=== PATIENT | female | born 2005 | race Two or more races ===

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

== ENCOUNTER 2025-02-10 11:30 | Emergency (ER) | payer SELFPAY ==
[2025-02-10 11:55] VITALS: BP 119/68; PULSE 97; RESP 16; TEMP 36.1; O2SAT 100; BMI 21.9
--- NOTE | 2025-02-10 11:59 | ED_ITS ---
HPI - General Adult General Chief complaint: Urogenital-Female Stated complaint: laser burn abd Time Seen by Provider: 02/10/25 12:36 Source: patient Mode of arrival: ambulatory Limitations: no limitations History of Present Illness ED Provider: PRISCILLA BUTLER PA-C HPI narrative: 19 year old female with no significant pmhx presents to ED with concern of burn to genital region following a laser hair removal session 8 days ago. Patient reports that pain has been worsening. Patient has been attempting cool baths, moisturizer and cool compresses without relief. Patient reports that pa in is now unbearable and that skin appears to be burned . She contacted the provider who performed her laser treatments and was informed that this may be atypical side effect. There were red bumps immediately after the session that pt now reports have become more red, painul and now look very infected. Severity rated 9/10. No fevers or drainage from leisions. Related Data Home Medications ?Medication ?Instructions ?Recorded ?Confirmed albuterol sulfate 90 mcg/actuation 2 puff inhalation Q 4-6H PRN 05/04/22 09/16/23 aerosol inhaler Previous Rx's ?Medication ?Instructions ?Recorded doxycycline monohydrate 100 mg 100 mg PO BID 7 days #1 4 caps 02/10/25 capsule Allergies Allergy/AdvReac Type Severity Reaction Status Date / Time egg (EGG) Allergy Mild HIVES Verified 02/10/25 12:02 Review of Systems Review of Systems: Yes all other systems are reviewed and are negative PMFSH Past Medical History Attestation statement: The following information was validated with the patient. Source: old records reviewed and nursing notes reviewed Social History Social History Alcohol intake: never Patient Tobacco Use Status: Never used Tobacco Advance Directives: No Advance Directives Information Provided: No Sexual orientation: Straight/Heterosexual Gender identity: Female Physical Exam ED Vital Signs: Vital Signs - 24 hr 02/10/25 11:55 02/10/25 14:16 Temperature 96.9 F 96.9 F Pulse Rate 97 97 Respiratory Rate 16 16 Blood Pressure 119/68 119/68 Pulse Oximetry 100 100 Oxygen Delivery Method Room Air Room Air BMI result Body Mass Index 21.9 vital signs stable, afebrile General: Well appearing, in no acute distress. Skin: Warm, dry, intact. No rashes or lesions. Head: Normocephalic, atraumatic. EENT: Hearing is intact b/l. Conjunctiva clear. PERRLA. EOM intact. Moist mucous membranes.? Cardiac: Chest wall symmetric. RRR Lungs: Normal respiratory effort without accessory muscle use. CTA bilaterally Abdomen: Soft, non-tender, non-distended. No rebound tenderness or guarding. Positive BS x4. Sensitive exam performed by myself and my PA student sarah in the room with patietn's consent. patient declined another chaparone. External genitalia with several areas of erythematous papules noted to b/l labia majora, noted induration without palpable fluctuance tender no active discharge Neuro: AOx3. Normal speech. Ambulating with steady gait. Course Course Course Narrative: RME, this is a rapid medical exam performed by Francois Chatman please refer to primary provider for complete H&P- 19 year old female presents for evaluation of vaginal pain and swelling after a laser hair treatment 8 days ago. Plan for physical examination once a room is available Medications Administered Discontinued Medications Generic Name Dose Route Start Last Admin Trade Name Freq PRN Reason Stop Dose Admin Acetaminophen 975 mg 02/10/25 14:01 02/10/25 14:16 Acetaminophen 325 Mg Tablet PO 02/10/25 14:02 975 mg ONCE ONE Administration Medical Decision Making Medical Decision Making [facility] Narrative: 19 year old female with no significant pmhx presents to ED with concern of burn to genital region following a laser hair removal session 8 days ago. Vital signs stable, afebrile. PE revealed several areas of erythematous papules noted to b/l labia majora externally, noted induration without palpable fluctuance tender no active discharge Diff dx include folliculitis, cellulitis, herpes simplex virus, abscess, Bartholin's cyst Unlikely CT/NG Patient's exam is concerning for cellulitis. Will start patient on doxycycline. Patient agreeable. Patient has remained stable throughout ED visit today. Discussed worrisome signs and symptoms and when to return to the ED. All questions answered at this time. Patient is agreeable with disposition and stable for discharge. Differential Diagnosis Differential Diagnoses: The differential diagnosis associated with the p resentation includes as above. Admission/Observation not indicated External Record Review External record reviewed: Inpatient record Prescription Management I considered prescription management with: Antibiotic (Doxycycline) Social Determinants Patient?s care significantly limited by Social Determinants of Health including: Other Social Determinant of Health Critical Care Time Critical Care Time Critical Care Time: No Discharge Plan Discharge Clinical Impression: Folliculitis Patient Disposition: Home, Self-Care Instructions: Folliculitis (ED) Additional Instructions: You were evaluated in the ED today for painful lesions to your genital area. Your exam is concerning for folliculitis. Please see home care instructions. I am treating you with a course of antibiotics. Doxycycline has been sent to your pharmacy. Take this as prescribed and to completion. You may also apply topical Neosporin to the area. Do not apply any other lotions/ointments. You may take tylenol/motrin as needed for discomfort. Keep the area clean and dry. Follow up with outpatient providers. Return with any new or worsening symptoms. In the case of an emerency call 911. Prescriptions: New doxycycline monohydrate 100 mg capsule 100 mg PO BID 7 Days Qty: 14 0RF No Action albuterol sulfate 90 mcg/actuation HFA aerosol inhaler 2 puff inhalation Q4-6H PRN Referrals: Physician,Sharri J [Primary Care Provider, Medical] Interventions: ED Discharge Assessment Last Done: 02/10/25 14:16 Discharge Date/Time: 02/10/25 14:16 Print Language: Japanese
[2025-02-10 14:16] VITALS: BP 119/68; PULSE 97; RESP 16; TEMP 36.1; O2SAT 100
== END 2025-02-10 14:16 | disposition home or self-care (01) ==
PROVIDERS: Emergency Provider Emergency Medicine
DX: L73.8 Other specified follicular disorders (principal); R23.8 Other skin changes
CPT/HCPCS: 99283